=== PATIENT | male | born 1960 | race Caucasian/White ===

== ENCOUNTER 2021-05-17 10:59 | Day surgery (SDC) | payer OTHER, SELFPAY ==
[~2021-05-17] VITALS: Ht 170.2 cm; Wt 73.9 kg
[2021-05-17] MEDS ORDERED: SIMETHICONE 40 MG/0.6 ML ML ONE (11:14)
[2021-05-17] MEDS ORDERED: MEPERIDINE 100 MG INJ. 100 MG/ML VIAL ONE (11:14)
[2021-05-17] MEDS ORDERED: MIDAZOLAM HCL 5 MG/5 ML VIAL ONE (11:15)
[2021-05-17] MEDS ORDERED: GLYCOPYRROLATE 0.2 MG/ML VIAL ONE (11:15)
[2021-05-17 17:54] VITALS: BP_SYST 118
== END 2021-05-17 14:15 | disposition home or self-care (01) ==
LOC: SDS 10:59
PROVIDERS: ATTEND Colon & Rectal Surgery
DX: Z12.11 Encounter for screening for malignant neoplasm of colon (principal); D12.5 Benign neoplasm of sigmoid colon; K57.30 Diverticulosis of large intestine without perforation or abscess without bleeding; Z79.899 Other long term (current) drug therapy; Z20.822 Contact with and (suspected) exposure to COVID-19
CPT/HCPCS: 45385; 88305; G0378; J2175; J2250; U0003; 45384; J3490